=== PATIENT | male | born 1975 | race Caucasian/White ===

== ENCOUNTER 2018-10-10 01:59 | Emergency (ER) | payer OTHER ==
[~2018-10-10] VITALS: Ht 182.9 cm; Wt 136.1 kg
[2018-10-10] MEDS ORDERED: ZOLOFT50 MG PO (02:09)
[2018-10-10] MEDS ORDERED: ZYRTEC10 MG PO (02:10)
== END 2018-10-10 03:48 | disposition home or self-care (01) ==
LOC: ED 01:59 → EDBD 02:00 → ED 03:48
DX: N23 Unspecified renal colic (principal); F32.9 Major depressive disorder, single episode, unspecified; Z79.899 Other long term (current) drug therapy
CPT/HCPCS: 74176; 80053; 81001; 85025; 96374; 96375; 99284-25; J1885; J2405